=== PATIENT | female | born 1990 | race Caucasian/White ===

== ENCOUNTER 2022-12-28 02:37 | Emergency (ER) | payer BC, OTHER ==
[~2022-12-28] VITALS: Ht 175 cm; Wt 138.3 kg
[2022-12-28 02:37] VITALS: BP 137/75
--- NOTE | 2022-12-28 02:48 | ED Lower Extremity ---
General Stated Complaint: RIGHT ANKLE Source: patient History of Present Illness Date Seen by Provider: Dec 28, 2022 Time Seen by Provider: 02:38 Initial Comments 32-year-old female presenting by private vehicle from home due to complaints of pain to her right ankle and foot. She states that on December 25 she had been in the backyard playing with her children and had stepped in a hole or something that caused her to twist her ankle and fall. She was seen Sunday in the urgent care clinic and had x-rays that she reports they told her were negative for any fractures. She has been able to walk if she walks on her tiptoes and was hopping. She states if she puts her foot flat that she has severe pain. She had been trying ibuprofen and Tylenol but states that since midnight the pain has been worse and she has not been able to sleep so she came to the emergency department. She did take ibuprofen around midnight without any improvement in her pain. She does not have a ankle splint or anything to help with her ankle and was able to drive herself here to the emergency department. Onset: other (SundayDecember 25) Severity: severe Pain/Injury Location: right ankle Method of Injury: fell Modifying Factors: Worse With Movement Allergies and Home Medications Allergies Coded Allergies: No Known Drug Allergies (Unverified , 12/28/22) Patient Home Medication List Home Medication List Reviewed: Yes Hydrocodone/Acetaminophen (Hydrocodone-Acetamin 5-325 mg) 5 Mg-325 Mg Tablet, 1 TAB PO Q6H PRN for PAIN SEVERE Prescribed by: MISSY LUNDBERG on 12/28/22 0309 Ibuprofen (Ibuprofen) 800 Mg Tablet, 800 MG PO Q8H PRN for PAIN Prescribed by: MISSY LUNDBERG on 12/28/22 0308 Review of Systems Constitutional: No chills, No fever EENTM: no symptoms reported Respiratory: no symptoms reported Cardiovascular: no symptoms reported Gastrointestinal: no symptoms reported Genitourinary: no symptoms reported Musculoskeletal: see HPI Skin: No change in color Psychiatric/Neurological: Denies Numbness, Denies Paresthesia Physical Exam Vital Signs Vital Signs - First Documented 12/28/22 02:37 Temp 36.9 Pulse 87 Resp 16 B/P (MAP) 137/75 (95) Pulse Ox 100 O2 Delivery Room Air Capillary Refill : Height, Weight, BMI Height: '" Weight: lbs. oz. kg; BMI Method: General Appearance: no apparent distress, obese Cardiovascular: normal peripheral pulses Ankles: right ankle pain, right ankle soft tissue tenderness Neurologic/Tendon: normal sensation, normal motor functions, normal tendon functions Neurologic/Psychiatric: alert, oriented x 3 Skin: normal color, warm/dry Progress/Results/Core Measures Results/Orders My Orders Orders - MISSY LUNDBERG MD Ankle 3 View Right (12/28/22 02:43) Ice: Apply To Affected Area (12/28/22 02:49) Elevate Affected Extremity (12/28/22 02:49) Rx-Hydrocodone/Apap 5-325 Mg (Rx-Vicodin (12/28/22 03:15) Air Strup Ankle Brace (12/28/22 03:02) Crutches (12/28/22 03:02) Vital Signs/I&O 12/28/22 02:37 Temp 36.9 Pulse 87 Resp 16 B/P (MAP) 137/75 (95) Pulse Ox 100 O2 Delivery Room Air Progress Progress Note #1: Progress Note Potential diagnosis of ankle sprain, occult ankle fracture, foot sprain. Obtain x-rays of the right ankle. Ice for pain and swelling. Elevation for pain and swelling. Since she had just taken some ibuprofen within the last few hours prior to arrival we will defer any additional pain medicine for now. Progress Note #2: Time: 03:00 Progress Note On my personal review and interpretation of the three-view films of the right ankle I did not appreciate any acute fracture or dislocation. Placed patient in an ankle stirrup splint and provided crutches for weightbearing as tolerated. Advised to check back with the clinic and also given information for orthopedics if having continued symptoms or not improving. For severe pain tonight we will send with a take-home pack of hydrocodone 5/325 mg pills 1 p.o. every 6 hours as needed severe pain. Prescription for 2 additional days sent to the [facility] pharmacy. Given information for nurse practitioner Josh Arechiga as well as Dr. Dougherty since she has orthopedic options for follow-up of not improving she may need an MRI or further evaluation by them. Diagnostic Imaging Diagonstic Imaging: Xray Plain Films/CT/US/NM/MRI: ankle Reviewed: Reviewed by Me Departure Impression Primary Impression: Acute right ankle pain Additional Impression: Sprain of ankle, right Qualified Codes: S93.401A - Sprain of unspecified ligament of right ankle, initial encounter Disposition: 01 HOME, SELF-CARE Condition: Stable Departure-Patient Inst. Decision time for Depature: 03:04 Referrals: SEBASTIAN ARECHIGA JUSTIN S MD [facility] [place]ructions: AIRCAST, Ankle Sprain ED, How to Use Crutches, Opioids for Short-Term Treatment of Pain ED Add. Discharge Instructions: Use ankle splint to give support and compression. Weight bearing as tolerated. Check back with clinic if still not improving. Scripts Ibuprofen (Ibuprofen) 800 Mg Tablet 800 MG PO Q8H PRN for PAIN for 10 Days, #30 TAB 0 Refills Prov: MISSY LUNDBERG MD 12/28/22 Hydrocodone/Acetaminophen (Hydrocodone-Acetamin 5-325 mg) 5 Mg-325 Mg Tablet 1 TAB PO Q6H PRN for PAIN SEVERE for 2 Days, #8 TAB 0 Refills Prov: MISSY LUNDBERG MD 12/28/22 MISSY LUNDBERG MD Dec 28, 2022 02:48
[2022-12-28] MEDS ORDERED: IBUP-1780 PO (03:08)
[2022-12-28] MEDS ORDERED: ACHD5005 PO (03:08)
--- NOTE | 2022-12-28 05:39 | Diagnostic Imaging Report ---
INDICATION: pain and swelling since twisted on Monday 12/25 COMPARISON: None. FINDINGS: Multiple radiographic views of the right ankle were obtained. There is no acute fracture or dislocation. No focal osseous lesions are seen. There is moderate generalized soft tissue swelling. There are no radiopaque foreign bodies. IMPRESSION: 1. Soft tissue swelling, but no radiographic evidence of acute fracture or dislocation of the right ankle. Dictated by: Dictated on workstation # [id number]
== END 2022-12-28 03:20 | disposition home or self-care (01) ==
LOC: ER FS 02:41
DX: S93.401A Sprain of unspecified ligament of right ankle, initial encounter (principal); W18.31XA Fall on same level due to stepping on an object, initial encounter; X50.1XXA Overexertion from prolonged static or awkward postures, initial encounter; Y92.096 Garden or yard of other non-institutional residence as the place of occurrence of the external cause
CPT/HCPCS: 73610